=== PATIENT | female | born 1990 | race Asian ===

== ENCOUNTER 2020-06-21 22:11 | Emergency (ER) | payer OTHER ==
[~2020-06-21] VITALS: Ht 160 cm; Wt 48.1 kg
[2020-06-21 22:23] VITALS: Ht 160 cm; Wt 48.1 kg
[2020-06-21 23:47] LABS: PLATELET COUNT 260 x10^3mcL (130-400)
[2020-06-21 23:49] LABS: RED CELL DISTRIBUTION WIDTH 11.4 % (11.5-14.5)
[2020-06-22 00:06] LABS: CALCIUM 8.9 mg/dL (8.5-10.1); CARBON DIOXIDE 28.4 mmol/L (21-32); CHLORIDE SERUM 102 mmol/L (98-107); CREATININE SERUM 0.9 mg/dL (0.6-1.0); GFR1 > 60 mL/min; GLUCOSE SERUM 89 mg/dL (74-106); POTASSIUM SERUM 3.8 mmol/L (3.5-5.1); SODIUM SERUM 136 mmol/L (136-145)
[2020-06-22 00:10] LABS: ALBUMIN 4.1 g/dL (3.4-5.0); ALKALINE PHOSPHATASE 54 U/L (46-116); ALT/SGPT 25 U/L (14-59); AST/SGOT 22 U/L (15-37); BILIRUBIN TOTAL 0.3 mg/dL (0.20-1.00)
[2020-06-22 00:19] LABS: T3 TOTAL 1.42 ng/mL
[2020-06-22 00:22] LABS: FREE T4 1.23 ng/dL (0.76-1.46); T4(THYROXINE) 11.5 ug/dL (4.7-13.3)
[2020-06-22 01:33] VITALS: BP 113/71
== END 2020-06-22 01:33 | disposition home or self-care (01) ==
LOC: ED 22:11
PROVIDERS: Emergency Medicine
DX: R07.89 Other chest pain (principal); R00.2 Palpitations; Z20.828 Contact with and (suspected) exposure to other viral communicable diseases
CPT/HCPCS: 84439; 85378